=== PATIENT | female | born 1965 | race Caucasian/White ===

== ENCOUNTER 2018-02-01 05:54 | Inpatient (IN) | payer OTHER ==
[~2018-02-01] VITALS: Ht 160 cm; Wt 65.8 kg
[2018-02-01] VITALS (10 sets, daily range): BP systolic 128–160; BP diastolic 69–99
[~2018-02-01 05:54] MED LIST: Chloraseptic Spray 20mL Bottle ORAL PRN; HYDROcodone/Acetamin 10/325 tab ORAL PRN; HYDROmorphone 1mg/ml Carpuject SUBQ PRN; Milk of Magnesia 30ml Ud ORAL PRN; NORCO 10/3251 EA ORAL; TYLENOL EXTRA500 MG ORAL
[2018-02-01] MEDS ORDERED: LR 1000ml 1,000 ML IVLG SCH (06:16)
[2018-02-01] MEDS ORDERED: Thrombin 5000 units TOPIC ONE (06:21)
[2018-02-01] MEDS ORDERED: Surgicel 4in x 8in TOPIC ONE (06:22)
[2018-02-01] MEDS ORDERED: Bacitracin 50000 Units Vial ONE (06:22)
[2018-02-01] MEDS ORDERED: Lidocaine 1% Plain 30 ml INJ ONE (06:22)
[2018-02-01] MEDS ORDERED: Midazolam 2mg/2ml Inj IVP PRN (06:30)
[2018-02-01] MEDS ORDERED: LORazepam Inj 2mg/ml 1ml IV PRN (06:30)
[2018-02-01] MEDS ORDERED: Ketorolac 30mg Inj IV PRN ×2 (06:30)
[2018-02-01] MEDS ORDERED: HYDROcodone/Acetamin 7.5/325 tab ORAL PRN (06:30)
[2018-02-01] MEDS ORDERED: Hydromorphone 0.5mg/0.5ml inj IVP PRN (06:30)
[2018-02-01] MEDS ORDERED: DiphenhydrAMINE 50mg/ml Inj IVP PRN (06:30)
[2018-02-01] MEDS ORDERED: Acetaminophen (Non formulary) 100 ML IV ONE (06:30)
[2018-02-01] MEDS ORDERED: Atropine Inj 1mg/10ml Syr IV PRN (06:30)
[2018-02-01] MEDS ORDERED: Dexamethasone 20mg/5ml ONE (06:30)
[2018-02-01] MEDS ORDERED: Norco 5mg/325mg tab ORAL PRN (06:30)
[2018-02-01] MEDS ORDERED: oxyCODONE HCL/Acetaminophen 5/325mg ORAL PRN (06:30)
[2018-02-01] MEDS ORDERED: fentaNYL 100 mcg/2 mL IV PRN (06:30)
[2018-02-01] MEDS ORDERED: ALPRAZOLAM0.5 MG PO (06:40)
--- NOTE | 2018-02-01 06:47 | Anethesia Preoperative Eval ---
Anesthesia Pre-op PMH/ROS General Date of Evaluation: Feb 01, 2018 Time of Evaluation: 07:11 Anesthesiologist: Wilma ASA Score: ASA 2 Mallampati Score Class I : Soft palate, uvula, fauces, pillars visible Class II: Soft palate, uvula, fauces visible Class III: Soft palate, base of uvula visible Class IV: Only hard plate visible Mallampati Classification: Class II Surgeon: Barber Diagnosis: Neck Pain Surgical Procedure: ACDF C5-6, C6-7 Anesthesia History: none Family History: no anesthesia problems Allergies: Coded Allergies: PENICILLINS (Verified Allergy, Intermediate, rash , 02/01/18) Uncoded Allergies: PLASTIC TAPE (Allergy, Intermediate, 01/31/18) SKIN IRRITATION,BLISTERS Medications: see eMAR Past Medical History Cardiovascular: Reports: HTN Neurologic/Psychiatric: Reports: depression/anxiety PSxH Narrative: C/S, Cholecystectomy, R Rotator Cuff SX Anesthesia Pre-op Phys. Exam Physician Exam Last Vital Signs Date Time Temp Pulse Resp B/P (MAP) Pulse Ox O2 Delivery O2 Flow Rate FiO2 02/01/18 06:38 98.4 75 18 160/99 100 Room Air 98.4 Constitutional: NAD Neurologic: CN 2-12 intact Cardiovascular: RRR Respiratory: CTA Gastrointestinal: S/NT/ND Airway Exam Mallampati Score: Class II MO: full ROM: limited Teeth: intact Anesthesia Pre-op A/P Risk Assessment & Plan Assessment: ASA 2 Plan: GA, BIS, GlideScope Status Change Before Surgery: No Pre-Antibiotics Dru Grams Ancef IV Given Within 1 Hr of Incision: Yes Time Given: 07:21 Baldo Dillon MD Feb 01, 2018 06:47
[2018-02-01] MEDS ORDERED: Dexamethasone 20mg/5ml IVP ONE (07:00)
[2018-02-01] MEDS ORDERED: Labetalol 5mg/ml 20ml vial IV ONE (07:11)
[2018-02-01] MEDS ORDERED: Neostigmine 1mg/ml 10ml Inj ONE (07:11)
[2018-02-01] MEDS ORDERED: fentaNYL 100 mcg/2 mL IV ONE (07:11)
[2018-02-01] MEDS ORDERED: Zemuron 50mg/5ml Inj IV ONE (07:11)
[2018-02-01] MEDS ORDERED: NS Irrig 1000ml ONE (07:11)
[2018-02-01] MEDS ORDERED: Propofol 200mg/20ml IV ONE (07:11)
[2018-02-01] MEDS ORDERED: Glycopyrrolate 0.2mg/ml 1ml Vial ONE (07:11)
[2018-02-01] MEDS ORDERED: LR 1000ml ONE (07:11)
[2018-02-01] MEDS ORDERED: Midazolam 2mg/2ml Inj ONE (07:11)
[2018-02-01] MEDS ORDERED: Sterile Water Irrig 1000ml IRRIG ONE (07:11)
[2018-02-01] MEDS ORDERED: Lidocaine 1% MPF 10mg/ml 5ml ONE (07:11)
--- NOTE | 2018-02-01 07:21 | Immediate Post-Op Evaluation ---
Immediate Post-Op Evalulation Immediate Post-Op Evalulation Procedure: ACDF C5-6, C6-7 Date of Evaluation: Feb 01, 2018 Time of Evaluation: 11:00 IV Fluids: 1000 LR Blood Products: 0 Estimated Blood Loss: 14 Urinary Output: 0 Blood Pressure Systolic: 134 Blood Pressure Diastolic: 88 Pulse Rate: 74 Respiratory Rate: 16 O2 Sat by Pulse Oximetry: 100 Temperature (Fahrenheit): 97.2 Pain Score (1-10): 3 Nausea: No Vomiting: No Complications 0 Patient Status: awake, reacts, patent, extubated, none Hydration Status: adequate Dru Grams Ancef IV Given Within 1 Hr of Incision: Yes Time Given: 07:21 Baldo Dillon MD Feb 01, 2018 07:20
--- NOTE | 2018-02-01 10:20 | Pre-Procedure Note/Attestation ---
Pre-Procedure Note/Attestation Complete Prior to Procedure Planned Procedure: not applicable Procedure Narrative: ACDF C5-6, C6-7 Anterior plate plate Indications for Procedure Pre-Operative Diagnosis: Past Trauma Cervicaol HNP radiculopathy, neck pain Attestation I attest that I discussed the nature of the procedure; its benefits; risks and complications; and alternatives (and the risks and benefits of such alternatives ), prior to the procedure, with the patient (or the patient's legal clearance representative). I attest that, if there was a reasonable possibility of needing a blood transfusion, the patient (or the patient's legal clearance representative) was given the [place] [employer] standardized written summary, pursuant to the Ab Lisa Blood Safety Act ([place] Health and Safety Code # 1645, as amended). I attest that I re-evaluated the patient just prior to the surgery and that there has been no change in the patient's H&P, except as documented below: TIM MILLER Feb 01, 2018 10:20
--- NOTE | 2018-02-01 10:23 | Brief Operative Note ---
Immediate Post Operative Note Operative Note Pre-op Diagnosis: Past Trauma Cervicaol HNP radiculopathy, neck pain Procedure: ACDF C5-6, C6-7 Interbody Tritanium lordotic graft, correction deeformity desompression spinal cord fusion autograft+osteogenic material anterior internal fixation ssep xray high power magnification disection Post-op Diagnosis: same as pre-op Findings: consistent w/pre-op dx studies Surgeon: Barber [employer] Equipment Erector: Ric LOUIS Anesthesiologist: Wilma Anesthesia: general Specimen: none Complications: none Condition: stable Fluids: anesthesia Estimated Blood Loss: minimal Drains: none Implant(s) used?: Yes TIM MILLER Feb 01, 2018 10:23
--- NOTE | 2018-02-01 11:22 | Diagnostic Imaging Report ---
Indication: Pain in neck and right upper extremity, intraoperative Technique: Intraoperative images Comparison: none Findings: Initial image demonstrates surgical tool projecting at the level of the C5-6 disc. Subsequent images document anterior fusion and placement of disc spacers at C5-C7. Impression: Intraoperative imaging, as described
[2018-02-01] MEDS ORDERED: Dronabinol 2.5mg Cap ORAL SCH (12:00)
[2018-02-01] MEDS ORDERED: D5 1/2NS 1,000 ML IV SCH (13:00)
[2018-02-01] MEDS ORDERED: SOMA350 MG PO (13:47)
[2018-02-01] MEDS ORDERED: Vancomycin 1 GM in D5W 275 ML IVPB ONE (14:00)
[2018-02-01] MEDS ORDERED: Chloraseptic Spray 20mL Bottle ORAL ONE (14:32)
[2018-02-01] MEDS ORDERED: Chloraseptic Spray 20mL Bottle ORAL PRN (14:45)
[2018-02-01] MEDS ORDERED: Vancomycin 1 GM in D5W 275 ML IVPB SCH (15:00)
--- NOTE | 2018-02-01 18:45 | Operative Note - Dictated ---
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 OPERATIVE PROCEDURE: 1. Anterior cervical diskectomy and fusion, C5-C6, C6-C7 correction deformity. 2. Decompression spinal cord. 3. Interbody reconstruction with a lordotic tritanium cage containing autograft with osteopromotive material. 4. Anterior internal fixation C5, C6, C7. 5. Intraoperative fluoroscopy interpreted by surgeon. 6. High-powered magnification dissection. 7. SSEP. SURGEON: Artis Blandon, PhD . SALES STORE CHECKER: HERIBERTO Munoz. ANESTHESIOLOGIST: Dr. Dillon. ANESTHESIA: General with intubation. ESTIMATED BLOOD LOSS: Minimal. COMPLICATIONS: None. POSTOPERATIVE CONDITION: Good/stable. FLUIDS: Please see anesthesia report. SPECIMEN: None. PROCEDURE IN DETAIL: The patient was brought to the operating room and in the supine position, general anesthesia with intubation was induced. After appropriate positioning and IV antibiotics/IV Decadron 30 minutes prior to incision time, a needle was placed within its sheath, taped to the contralateral aspect of the neck in a vertical position and cross-table radiograph was obtained and interpreted by surgeon for decision of incision and level placement. Appropriate level for incision on the left side of the neck, opposite where the tape was, was made with sterile marking pen. Marker removed. Anterior cervical spine sterilely prepped and draped free in usual sterile fashion. A transverse left incision was sharply placed at dermis and epidermis. Electrocautery dissection was carried through the subcutaneous tissue to the level of the platysmas muscle. It was identified, isolated, and transected in line with the incision. Dissection was carried medial to the left sternocleidomastoid muscle through the deep cervical and pretracheal fascia to the midline between the right and left longus colli muscles. Spinal needle bent at 90 degree angles to avoid penetration greater than 3 mm and placed in the disk space. A cross-table image was obtained under sterile conditions demonstrating the correct level for further dissection. Level was marked. Needle removed. Longus colli muscles were elevated subperiosteally 3 mm in the mediolateral extent over the involved intervals. Retractors placed. A C6-C7, anterior osteophyte resected under high-power magnification with Midas Jeremiah bur dissection. Endplate denuding of cartilage to the posterior longitudinal ligament. Posterior longitudinal ligament resected with decompression of spinal cord. Removal of posterior osteophytes without change in SSEP or EMG studies. No CSF leak noted anytime during the procedure. Interpositional grafting with the appropriate dimension graft was undertaken, lordotic 6 degrees countersunk 1 mm from anterior cortical margins. The patient is stable. The patient was maintained stable at all times. Retractors were placed at the C5-C6 interval where an annulotomy was performed after resection with Midas Jeremiah bur dissection of anterior osteophytes. End-plates were fashioned under high-power magnification. Two flat surfaces with denuding of cartilaginous end-plates with maintenance of subchondral bone. Posterior longitudinal ligament was resected. Decompression of the spinal cord and foraminotomies. No cerebrospinal fluid leakage noted anytime. SSEP monitoring. EMG is normal at all times. Interpositional grafting with the tritanium graft lordotic 6 degrees containing autograft combined with osteopromotive material. Countersunk 1 mm into the appropriate space. Imaging obtained demonstrating excellent alignment. SSEP monitoring stable at all times. The EMGs stable at all times. A 10 pounds of traction on the neck was removed. The anterior internal plate fixation in a compressive fashion was undertaken C5, C6, C7 bilaterally. Screws locked in position. Final radiograph was obtained and printed. Wound irrigated with antibiotic-containing saline. Exploration under high-power magnification revealed no obvious excoriation or laceration of vital structures. FloSeal applied followed with 500 mg of vancomycin powder deep to the platysmas muscle. Platysmas muscle reapproximated with Vicryl suture material. Subcuticular/subcutaneous reapproximated. Surgical strips applied followed with Dermabond. Sterile bandage applied after the Dermabond was dry. The patient was awakened, extubated in the operating room, and transported to postop recovery in good stable condition. Artis Blandon M.D. DR: RAMBO JOB#: [id number] CC:
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
[2018-02-02 06:49] VITALS: BP 145/92
--- NOTE | 2018-02-02 06:49 | 48 Hour Post Anesthesia Eval ---
Post Anesthesia Evaluation Procedure: ACDF C5-6, C6-7 Date of Evaluation: Feb 01, 2018 Time of Evaluation: 12:30 Blood Pressure Systolic: 145 0: 92 Pulse Rate: 85 Respiratory Rate: 18 Temperature (Fahrenheit): 97.1 O2 Sat by Pulse Oximetry: 99 Airway: patent Nausea: No Vomiting: No Pain Intensity: 1 Hydration Status: adequate Cardiopulmonary Status: a baseline Mental Status/LOC: patient returned to baseline Post-Anesthesia Complications: 0 Follow-up care needed: N/A - further care as per primary ESTELA Villalba M.D. Feb 02, 2018 06:49
--- NOTE | 2018-02-02 14:31 | Discharge Summary ---
Discharge Summary Hospital Course Date of Admission Feb 01, 2018 at 12:11 Date of Discharge Feb 01, 2018 at 16:15 Admitting Diagnosis HPI Radha Mcgovern is a 52 year old female who was admitted on Feb 01, 2018 at 12:11 for Cervical Discogenic Pain Hospital Course [id number] Discharge Discharge Disposition Patient was discharged to Home (01) Discharge Diagnoses: Michell Hutton NP Feb 02, 2018 14:31
--- NOTE | 2018-02-03 05:15 | Discharge Summary 2 SIG ---
DATE OF ADMISSION: 02/01/2018 DATE OF DISCHARGE: 02/01/[address] RECORDER: Cirilo Kingsley M.D. BRIEF HOSPITAL COURSE: The patient is a 52-year-old female, who injured her right shoulder and neck after a roll of carpet fell onto her. She had neck pain and was diagnosed with herniated nucleus pulposus with radiculopathy on C5-C6 and C6-C7. She had failed conservative management and was admitted on 02/01/2018, underwent anterior cervical diskectomy and fusion on C5-C6 and C6-C7. She tolerated procedure well. Postoperatively, was seen by pain management, Dr. Kingsley. She was given Marinol and [place] with as needed Dilaudid subcutaneously for breakthrough pain. She was given Protonix for GI prophylaxis and SCDs for DVT prophylaxis. She was encouraged use of incentive spirometer. She underwent physical therapy and had good pain control. She was eventually discharged home. FINAL DIAGNOSES: 1. 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 2. Status post anterior cervical discectomy and fusion, C5-C6 and C6-C7 correction deformity. Please refer to operative report. DISPOSITION: The patient was discharged home. DISCHARGE MEDICATIONS: Continue with Soma and [place] p.r.n. DISCHARGE INSTRUCTIONS: Follow up as outpatient. Artis Blandon M.D. I have been assigned to dictate discharge summary on this account and I was not involved in the patient's management. Michell Hutton N.P. DR: KARI JOB#: [id number] CC: BENNIE
== END 2018-02-01 16:15 | disposition home or self-care (01) | DRG 473 ==
LOC: SUR 05:54 → 3E 12:11
PROC: 0RG20A0 Fusion of 2 or more Cervical Vertebral Joints with Interbody Fusion Device, Anterior Approach, Anterior Column, Open Approach (ICD-10-PCS; principal; 2018-02-01 07:00)
PROC: 0RB30ZZ Excision of Cervical Vertebral Disc, Open Approach (ICD-10-PCS; principal; 2018-02-01 07:00)
PROC: 4A11X4G Monitoring of Peripheral Nervous Electrical Activity, Intraoperative, External Approach (ICD-10-PCS; principal; 2018-02-01 07:00)
DX: M50.122 Cervical disc disorder at C5-C6 level with radiculopathy (principal); F41.9 Anxiety disorder, unspecified; G89.18 Other acute postprocedural pain; Z91.81 History of falling; Z86.73 Personal history of transient ischemic attack (TIA), and cerebral infarction without residual deficits
CPT/HCPCS: 36415; 72040; 76001; 86850; 86900; 86901; 87081; 94003; 94150; J2250; J2710